=== PATIENT | female | born 1960 | race Caucasian/White ===

== ENCOUNTER 2025-06-06 13:49 | Outpatient (CLI) | payer MEDICARE, SELFPAY ==
--- NOTE | ~2025-06-06 | CT_ITS ---
EXAMINATION: CT soft tissue neck w con DATE: 06/06/2025 14:22 INDICATION: Oral cancer TECHNIQUE: Computed tomography (CT) of the neck was performed with 75 mL Omnipaque-350 intravenous contrast. Automated exposure control and iterative reconstruction technique were employed. The dose-length product was 378.81 mGy-cm. COMPARISON: None FINDINGS: Metallic streak artifact associated with an anterior plate-screw fixation for C5-C6 anterior spinal fusion and a malleable plate and screw fixation along the left mandible where there appears to been resection of the mandibular ramus with bone graft reconstruction. There multiple surgical clips in the neck on both the left and right which extend along the bilateral jugular chains and in the submandibular region. There is been resection of the left submandibular gland. Fatty atrophy of the left parotid gland which could be related to prior radiation treatment. Orbits are normal. The paranasal sinuses are clear. Mastoid air cells and middle ear cavities are clear. Thyroid gland is unremarkable. There are scattered normal-sized lymph nodes in the neck, no pathologically enlarged lymphadenopathy. No masses identified. The vasculature is patent and normal in caliber. Airway is unremarkable. Superior mediastinum is unremarkable. The visualized upper lungs are clear. 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 Mild to moderate facet osteoarthritis and more cephalad cervical spine. IMPRESSION: 1. Postoperative changes including resection of the left mandibular ramus and left submandibular gland with left mandibular bone graft reconstruction and likely bilateral cervical lymph node dissections. No soft tissue masses or pathologically enlarged lymphadenopathy to suggest recurrent disease. Reviewed, dictated and finalized at location A. [employer] IMPRESSION: 1. Postoperative changes including resection of the left mandibular ramus and l eft submandibular gland with left mandibular bone graft reconstruction and like ly bilateral cervical lymph node dissections. No soft tissue masses or patholog ically enlarged lymphadenopathy to suggest recurrent disease.
[2025-06-06 14:11] LABS: Estimated Glomerular Filt Rate 38
== END 2025-06-06 13:50 | disposition home or self-care (01) ==
DX: Z48.814 Encounter for surgical aftercare following surgery on the teeth or oral cavity (principal); Z94.6 Bone transplant status; C06.9 Malignant neoplasm of mouth, unspecified
CPT/HCPCS: 70491; Q9967